=== PATIENT | female | born 1970 | race Hispanic/Latino ===

== ENCOUNTER 2024-07-11 13:08 | Emergency (ER) | payer BC ==
[~2024-07-11] VITALS: Ht 149.9 cm; Wt 62.1 kg
[2024-07-11 13:50] LABS: BASOPHILS # (AUTO) 0.02 K/uL (0.00-0.20); BASOPHILS % (AUTO) 0.2 % (0.0-5.0); EOSINOPHILS # (AUTO) 0.09 K/uL (0.00-0.70); EOSINOPHILS % (AUTO) 1.1 % (0.0-8.0); HEMATOCRIT 42.2 % (36-48); IMMATURE GRANULOCYTE ABSOLUTE 0.02 K/uL (0-1); LYMPHOCYTES # (AUTO) 2.3 K/uL (1.0-4.8); LYMPHOCYTES % (AUTO) 27.6 % (21.0-51.0); MEAN CORPUSCULAR HEMOGLOBIN 31.5 pg (27.0-33.0); MEAN CORPUSCULAR HGB CONC 34.4 g/dL (32.0-36.0); MEAN CORPUSCULAR VOLUME 91.5 fL (79-99); MONOCYTES # (AUTO) 0.6 K/uL (0.1-1.0); MONOCYTES % (AUTO) 7.2 % (3.0-13.0); NEUTROPHILS # (AUTO) 5.3 K/uL (1.8-7.7); NEUTROPHILS % (AUTO) 63.7 % (40.0-77.0); PLATELET COUNT (AUTO) 205 K/uL (130-400); RED BLOOD CELL COUNT(AUTO) 4.61 MIL/uL (4.00-5.50); RED CELL DISTRIBUTION WIDTH 12.7 % (11.0-15.5); WHITE BLOOD COUNT (AUTO) 8.3 K/uL (4.8-10.8)
[2024-07-11 13:58] LABS: CREATININE 0.8 mg/dL (0.5-1.0); POTASSIUM 3.6 mmol/L (3.5-5.1)
[2024-07-11 13:59] LABS: INR 1.01 (0.85-1.15); PROTHROMBIN TIME 10.7 SEC (9.6-11.6)
[2024-07-11 14:00] LABS: PARTIAL THROMBOPLASTIN TIME 25.9 SEC (26.3-35.5)
[2024-07-11 14:03] LABS: MAGNESIUM 1.9 mg/dL (1.80-2.40)
[2024-07-11] MEDS: LACTATED RINGERS 1000ML 1,000 ML IV ONE (14:06)
[2024-07-11 14:10] LABS: B-TYPE NATRIURETIC PEPTIDE 13 pg/mL (0-100)
--- NOTE | 2024-07-11 14:22 | HMCIMG ---
Exam Type: CHEST 1VW Clinical Information: VCP Comparison: None Findings: The lungs are clear of infiltrates. The heart is normal in size. The bony and soft tissue structures of the chest are unremarkable. Impression: Clear lungs.
[2024-07-11] MEDS ORDERED: AMOX1TAB16 PO (15:10)
[2024-07-11] MEDS ORDERED: LORA10TA7 PO (15:10)
[2024-07-11] MEDS ORDERED: FLUT16H NS (15:10)
--- NOTE | 2024-07-11 15:11 | ERN ---
General Chief Complaint: Chest Wall Pain Stated Complaint: LEFT SIDE CHEST PAIN RADIATING TO LEFT BACK Time Seen by MD: 13:10 Source: patient History of Present Illness Initial Comments THIS IS A 54-YEAR-OLD FEMALE COMING IN TO BE EVALUATED FOR A COUGH. PER PATIENT SHE HAS HAD THIS COUGH FOR THREE MONTHS. SHE STATES THAT WHEN SHE COUGHS SHE FEELS PHLEGM IN HER CHEST. AND FEVER OR CHILLS. Allergies: Coded Allergies: No Known Drug Allergies (Unverified Allergy, Unknown, 07/11/24) Past Medical History Past Medical History: Diabetes-Type II, Hypertension Past Surgical History: Cholecystectomy, ROS Dictation CONSTITUTIONAL: NO CHILLS, NO FEVER, NO WEAKNESS, NO DIAPHORESIS, NO MALAISE. HEAD/FACE: NO SIGNS OF TRAUMA. EENT: NO EYE PAIN, NO BLURRED VISION, NO TEARING, NO DOUBLE VISION, NO EAR PAIN, NO EAR DISCHARGE, NO NOSE PAIN, NO NASAL CONGESTION, NO THROAT PAIN, NO THROAT SWELLING, NO MOUTH PAIN. RESPIRATORY: COUGH, NO ORTHOPNEA, NO SOB, NO STRIDOR, NO WHEEZING. CARDIOVASCULAR: NO CHEST PAIN, NO EDEMA, NO PALPITATIONS, NO SYNCOPE. GASTROINTESTINAL/ABDOMINAL: NO ABDOMINAL PAIN, NO CONSTIPATION, NO DIARRHEA, NO NAUSEA, NO VOMITING. GENITOURINARY: NO ABNORMAL DISCHARGE, NO DYSURIA, NO FREQUENT URINATION, NO HEMATURIA. NO COMPLAINTS OF PAIN IN THE GENITALS. MUSCULOSKELETAL: NO BACK PAIN, NO GOUT, NO JOINT PAIN, NO JOINT SWELLING, NO MUSCLE PAIN, NO MUSCLE STIFFNESS, NO NECK PAIN. INTEGUMENTARY: NO CHANGE IN COLOR, NO CHANGE IN HAIR/NAILS, NO DRYNESS, NO LESION, NO LUMPS, NO RASH. NEUROLOGICAL/PSYCH: NO ANXIETY, NOT DEPRESSED, NO EMOTIONAL PROBLEM, NO HEADACHE, NO NUMBNESS, NO PRE-EXISTING DEFICIT, NO HISTORY OF SEIZURES, NO BRIGITTE MORS, NO WEAKNESS. HEMATOLOGIC/LYMPHATIC: NOT ANEMIC, NO HISTORY OF BLOOD CLOTS, NO APPARENT BLEEDING, NO BRUISING, GLANDS NOT SWOLLEN. ALL SYSTEMS NEGATIVE, EXCEPT NOTED. Physical Exam Physical Exam Dictation VITAL SIGNS: REVIEWED. GENERAL APPEARANCE: ALERT, ORIENTED X3, NO ACUTE DISTRESS, OBESE. HEAD AND FACE: NON-TRAUMATIC. EYES: PERRL, PINK CONJUNCTIVAS, EYELID NO TRAUMA, ANTERIOR CHAMBER CLEAR. EARS: PINNAS INTACT AND NO SIGNS OF TRAUMA OR ERYTHEMA. EAR CANALS CLEAR AND NO DISCHARGE. TMS ERYTHEMA. NOSE: NO DISCHARGE, NO BLEEDING. OROPHARYNX: MOUTH NORMAL, TEETH NO CARIES, TONGUE PINK. PHARYNX ERYTHEMA. TONSILS NO EXUDATES, NO ABSCESSES NOTED. MUCOUS MEMBRANE MOIST. NECK: SUPPLE, NON-TENDER, NO THYROMEGALY, NO MASSES, NO JVD, NO BRUITS. BREAST: DEFERRED. CHEST: NO TENDERNESS, NO CREPITUS, NO PARADOXICAL MOVEMENT, NO RETRACTIONS. LUNGS: CLEAR, WELL-VENTILATED, SYMMETRIC, NO RALES, NO WHEEZING, NO RHONCHI, NO STRIDOR, GOOD BREATH SOUNDS BILATERALLY. HEART: REGULAR RATE, REGULAR RHYTHM, NO MURMUR, NO GALLOPS. VASCULAR: NO PERIPHERAL EDEMA. ABDOMEN: SOFT, POSITIVE BOWEL SOUNDS, NONDISTENDED, NO GUARDING, NONTENDER, NO REBOUND, NO MASSES NO HEPATOMEGALY, NO SPLENOMEGALY, NO COMBS'S SIGN, NO HERNIA S. RECTAL: DEFERRED. GENITAL: DEFERRED. NEUROLOGICAL: NORMAL SPEECH, GROSS MOTOR FUNCTION INTACT, GROSS SENSORY FUNCTION INTACT. MUSCULOSKELETAL: NECK NONTENDER, FULL RANGE OF MOTION, BACK NONTENDER, FULL RANGE OF MOTION. EXTREMITIES: NONTENDER, FULL RANGE OF MOTION. SKIN: COLOR PINK, DRY, NO TURGOR, NO RASH, NO LACERATIONS, NO ABRASIONS, NO CONTUSIONS. LYMPHATICS: DEFERRED. Results Laboratory and Microbiology Lab and Micro Result Laboratory Tests Test 07/11/24 13:40 White Blood Count 8.3 K/uL (4.8-10.8) Red Blood Count 4.61 MIL/uL (4.00-5.50) Hemoglobin 14.5 g/dL (12.0-16.0) Hematocrit 42.2 % (36-48) Mean Corpuscular Volume 91.5 fL (79-99) Mean Corpuscular Hemoglobin 31.5 pg (27.0-33.0) Mean Corpuscular Hemoglobin Concent 34.4 g/dL (32.0-36.0) Red Cell Distribution Width 12.7 % (11.0-15.5) Platelet Count 205 K/uL (130-400) Mean Platelet Volume 10.1 fL (7.5-10.5) Immature Granulocyte % (Auto) 0.2 % (0-1) Neutrophils (%) (Auto) 63.7 % (40.0-77.0) Lymphocytes (%) (Auto) 27.6 % (21.0-51.0) Monocytes (%) (Auto) 7.2 % (3.0-13.0) Eosinophils (%) (Auto) 1.1 % (0.0-8.0) Basophils (%) (Auto) 0.2 % (0.0-5.0) Neutrophils # (Auto) 5.3 K/uL (1.8-7.7) Lymphocytes # (Auto) 2.3 K/uL (1.0-4.8) Monocytes # (Auto) 0.6 K/uL (0.1-1.0) Eosinophils # (Auto) 0.09 K/uL (0.00-0.70) Basophils # (Auto) 0.02 K/uL (0.00-0.20) Absolute Immature Granulocyte (auto 0.02 K/uL (0-1) Nucleated Red Blood Cells 0.0 % (0.0-0.19) Prothrombin Time 10.7 SEC (9.6-11.6) Prothromb Time International Ratio 1.01 (0.85-1.15) Activated Partial Thromboplast Time 25.9 SEC (26.3-35.5) L Sodium Level 137 mmol/L (136-145) Potassium Level 3.6 mmol/L (3.5-5.1) Chloride Level 101 mmol/L (101-111) Carbon Dioxide Level 28 mmol/L (21-32) Blood Urea Nitrogen 16 mg/dL (7-18) Creatinine 0.8 mg/dL (0.5-1.0) Glomerular Filtration Rate Calc 88 mL/min (>90) Random Glucose 316 mg/dL (70-105) H Total Calcium 9.1 mg/dL (8.5-10.1) Magnesium Level 1.90 mg/dL (1.80-2.40) Total Creatine Kinase 123 U/L (21-232) Troponin I High Sensitivity 7 ng/L (4-50) B-Type Natriuretic Peptide 13 pg/mL (0-100) Labs Reviewed?: Yes EKG/XRAY/US/CT/MRI EKG Comment 07/11/2024 TIME 1:26 P.M. VENTRICULAR RATE 83 SINUS RHYTHM OR [address] WAVE ELEVATION OR DEPRESSION X-RAY Comment [address] [place] [address] IMAGING REPORT Signed PATIENT: THOM HARPER MR#: [id number] : 1970 SEX: F AGE: 54 LOCATION: [facility] ORDER 18 STATUS: REG ER REPORT#: [id number] SERVICE 17 REASON: VCP ORDERING PHYSICIAN: ANURADHA YAO MD PROCEDURE: CXR1VW - CHEST 1VW Exam Type: CHEST 1VW Clinical Information: VCP Comparison: None Findings: The lungs are clear of infiltrates. The heart is normal in size. The bony and soft tissue structures of the chest are unremarkable. Impression: Clear lungs. DICTATED BY: RENETTA CABELLO MD DATE: 07/11/241419 ELECTRONICALLY SIGNED BY: RENETTA CABELLO MD DATE: 07/11/241421 MDM MDM: DIFFERENTIAL DIAGNOSIS: URI, SINUSITIS, PNEUMONIA, BRONCHITIS, RATIONALE: TESTS CONSIDERED AND ORDERED SECONDARY TO SHARED DECISION MAKING INCLUDE: PREVIOUS OUTSIDE RECORDS REVIEWED: OLD ER VISITS. PATIENT IS A 54-YEAR-OLD FEMALE COMING IN TO BE EVALUATED FOR A COUGH. PHYSICAL EXAM TYMPANIC MEMBRANE ERYTHEMA BILATERAL NASAL TURBINATE SWELLING OROPHARYNGEAL ERYTHEMA CONSISTENT WITH SINUSITIS. CHEST X-RAY NEGATIVE FOR ACUTE FINDINGS. PATIENT WILL BE DISCHARGED IN STABLE CONDITION WITH A DIAGNOSIS OF SINUSITIS I ALSO ADVISED HER APPROPRIATE FOLLOW UP WITH PCP AND OR ENT IN 1-2 DAYS. ED Course Orders Procedure Category Date Status Time Cbc With Differential LAB 07/11/24 Complete 13:18 Prothrombin Time With LAB 07/11/24 Complete INR 13:18 B-Type Natriuretic LAB 07/11/24 Complete Peptide 13:18 Chest 1vw RAD 07/11/24 Resulted 13:18 12 Lead Ekg Tracing- EKG 07/11/24 Logged Technical 13:18 Lactated Ringers PHA 07/11/24 Complete 1000ml (Lactated 13:30 Magnesium LAB 07/11/24 Complete 13:18 Creatine Kinase, Total LAB 07/11/24 Complete 13:18 Troponin I High LAB 07/11/24 Complete Sensitivity 13:18 Partial LAB 07/11/24 Complete Thromboplastin Time 13:18 Basic Metabolic Panel LAB 07/11/24 Complete 13:18 Urinalysis LAB 07/11/24 Logged W/Microscopic 14:12 Current Medications Medications (Trade) Dose Ordered Sig/Lalo Route PRN Reason Start Time Stop Time Status Last Admin Dose Admin Lactated Ringer's 1,000 ml @ 0 mls/hr ONCE ONCE IV 07/11/24 13:30 07/11/24 13:31 DC 07/11/24 14:06 Vital Signs Date Time Temp Pulse Resp B/P (MAP) Pulse Ox O2 Delivery O2 Flow Rate FiO2 07/11/24 13:17 98.4 96 16 157/86 99 Room Air* 0 21 07/11/24 13:09 98.4 96 16 157/86 99 Room Air 0 DX & DISP Disposition: Discharge Departure Impression: Primary Impression: Sinusitis Condition: Stable Scripts Loratadine (Loratadine) 10 Mg Tablet 1 TAB PO DAILY for allergy symptoms for 30 Days, #30 TAB 0 Refills Prov: ANURADHA YAO MD 07/11/24 Fluticasone Propionate (Flonase Nasal Archer) 50 Mcg/Actuation Archer 2 SPRAY NS DAILY, #16 GM 0 Refills Prov: ANURADHA YAO MD 07/11/24 Amoxicillin/Potassium Clav (Amox Tr-K Clv 875-125 mg Tab) 875 Mg-125 Mg Tablet 1 TAB PO BID for 10 Days, #20 TAB 0 Refills Prov: ANURADHA YAO MD 07/11/24 Additional Instructions: FOLLOW-UP WITH PRIMARY CARE PROVIDER IN 1 TO 2 DAYS. TAKE MEDICATIONS DIRECTED HERE IN THE EMERGENCY ROOM. OKAY TO CONTINUE HOME MEDICATIONS UNLESS OTHERWISE DISCUSSED DURING YOUR VISIT IN THE EMERGENCY ROOM TODAY. RETURN TO YOUR NEAREST EMERGENCY ROOM IF SYMPTOMS WORSEN OR IF THERE IS NO IMPROVEMENT. CALL 911 IF YOU NEED IMMEDIATE ASSISTANCE. TAKE TYLENOL [id number] NEEDED AND IF NO CONTRAINDICATIONS ARE PRESENT. INCREASE ORAL HYDRATION. A WOUND CULTURE OR URINE CULTURE WAS ORDERED HERE IN THE EMERGENCY ROOM DEPARTMENT PLEASE FOLLOW-UP WITH PRIMARY CARE PROVIDER AND ADVISE THEM TO GET REPEAT PORTS FROM OUR FACILITY. IF YOU HAD ANY NATHALIE WRAP/SPLINTS THAT WERE APPLIED HERE, PLEASE DO NOT REMOVE THEM UNTIL YOU SEE YOUR PRIMARY CARE OR SPECIALTY. REFERRALS: Referrals: SOLO SPENCE MD (PCP) JOYA RIVERS MD Time of Disposition: 15:09 ANURADHA YAO MD Jul 11, 2024 15:11
[2024-07-11 15:24] VITALS: BP 142/78; PULSE 85; RESP 16; TEMP 98.4; O2SAT 99
--- NOTE | 2024-07-11 16:32 | EKG ---
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
[2024-07-12] MEDS ORDERED: KETO10TA2 PO (21:00)
[2024-07-12] MEDS ORDERED: CYCL10TA16 PO (21:00)
== END 2024-07-11 15:57 | disposition home or self-care (01) ==
LOC: EDH 13:08
DX: J32.9 Chronic sinusitis, unspecified (principal); E11.9 Type 2 diabetes mellitus without complications; I10 Essential (primary) hypertension; Z90.49 Acquired absence of other specified parts of digestive tract
CPT/HCPCS: 99284; 71045; 82550; 83735; 84484; 80048; 83880; 85025; 85610; 85730; 36415; 93005; J7120; 99285

== ENCOUNTER 2024-07-12 16:46 | Emergency (ER) | payer BC ==
[~2024-07-12] VITALS: Ht 149.9 cm; Wt 62.3 kg
[~2024-07-12 16:46] MED LIST: AMOX1TAB16 PO; FLUT16H NS; LORA10TA7 PO
[2024-07-12] MEDS ORDERED: IOHEXOL-350 75 ML VIAL IV ONE (17:23)
[2024-07-12 17:28] LABS: BASOPHILS # (AUTO) 0.02 K/uL (0.00-0.20); BASOPHILS % (AUTO) 0.3 % (0.0-5.0); EOSINOPHILS # (AUTO) 0.07 K/uL (0.00-0.70); IMMATURE GRANULOCYTE ABSOLUTE 0.02 K/uL (0-1); LYMPHOCYTES # (AUTO) 2.4 K/uL (1.0-4.8); LYMPHOCYTES % (AUTO) 35.9 % (21.0-51.0); MEAN CORPUSCULAR HEMOGLOBIN 30.6 pg (27.0-33.0); MEAN CORPUSCULAR HGB CONC 33.8 g/dL (32.0-36.0); MEAN CORPUSCULAR VOLUME 90.5 fL (79-99); MONOCYTES # (AUTO) 0.5 K/uL (0.1-1.0); MONOCYTES % (AUTO) 7.5 % (3.0-13.0); NEUTROPHILS # (AUTO) 3.7 K/uL (1.8-7.7); PLATELET COUNT (AUTO) 206 K/uL (130-400); RED BLOOD CELL COUNT(AUTO) 4.64 MIL/uL (4.00-5.50); RED CELL DISTRIBUTION WIDTH 12.5 % (11.0-15.5); WHITE BLOOD COUNT (AUTO) 6.7 K/uL (4.8-10.8)
[2024-07-12 17:32] LABS: CREATININE 0.7 mg/dL (0.5-1.0)
[2024-07-12 17:36] LABS: INR 0.97 (0.85-1.15); PROTHROMBIN TIME 10.3 SEC (9.6-11.6)
[2024-07-12 17:37] LABS: MAGNESIUM 1.9 mg/dL (1.80-2.40); PARTIAL THROMBOPLASTIN TIME 25.8 SEC (26.3-35.5)
[2024-07-12 17:48] LABS: B-TYPE NATRIURETIC PEPTIDE 41 pg/mL (0-100)
--- NOTE | 2024-07-12 17:50 | EKG ---
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
[2024-07-12] MEDS: hydroMORPHone 0.5 MG SYG (0.5MG/0.5ML) IVP ONE (18:26)
--- NOTE | 2024-07-12 18:53 | HMCIMG ---
CT ANGIOGRAM OF THE CHEST WITHOUT AND WITH CONTRAST. CT RECONSTRUCTIONS INDICATION: Pulmonary embolism evaluation TECHNIQUE: Routine axial images using 3 mm slice thickness were acquired from the lung apices to the bases before and after the intravenous administration of 100 mL of Omnipaque 350 contrast material using the pulmonary embolism protocol. Maximum Intensity Projection imaging in the sagittal and coronal planes were also provided. CT was performed with one or more of the following dose reduction techniques: Automated exposure control, adjustment of the mA and/or kV according to patient size, or use of iterative reconstruction technique. COMPARISON: None FINDINGS: The contrast bolus is of good quality for diagnosis of pulmonary embolism. The heart size is within normal limits without pericardial effusion. The main pulmonary arteries, segmental branches, and visualized subsegmental pulmonary arteries appear normal without intraluminal filling defects. Pulmonary trunk is not enlarged. No evidence for thoracic aortic aneurysm or dissection. The origins of the great vessels and thoracic aorta appear normal. The visible portions of the trachea and airways are patent. No pleural effusion, pneumothorax, abnormal opacity or consolidation, pulmonary nodule, or mass identified. No axillary, hilar, or mediastinal lymphadenopathy detected. Limited views of the upper abdomen appear unremarkable. Visible osseous structures are intact. IMPRESSION: No evidence for pulmonary embolism. 2
[2024-07-12] MEDS: ketOROlac 15MG/ML VIAL (15MG/ML) IV ONE (20:05)
[2024-07-12] MEDS: ORPHENADRINE 60MG/2ML IVP ONE (20:05)
[2024-07-12 20:33] VITALS: BP 164/90; PULSE 68; RESP 18; TEMP 98; O2SAT 98
--- NOTE | 2024-07-12 20:55 | ERN ---
General Chief Complaint: Abnormal Labs Stated Complaint: SENT BY PHY Time Seen by MD: 16:49 Time Seen by Midlevel: 16:49 Source: patient History of Present Illness Allergies: Coded Allergies: No Known Drug Allergies (Unverified Allergy, Unknown, 07/11/24) Home Meds Active Scripts Loratadine (Loratadine) 10 Mg Tablet, 1 TAB PO DAILY for allergy symptoms for 30 Days, #30 TAB 0 Refills Prov:ANURADHA YAO MD 07/11/24 Fluticasone Propionate (Flonase Nasal Amaya) 50 Mcg/Actuation Amaya, 2 SPRAY NS DAILY, #16 GM 0 Refills Prov:ANURADHA YAO MD 07/11/24 Amoxicillin/Potassium Clav (Amox Tr-K Clv 875-125 mg Tab) 875 Mg-125 Mg Tablet, 1 TAB PO BID for 10 Days, #20 TAB 0 Refills Prov:ANURADHA YAO MD 07/11/24 Past Medical History Past Medical History: Diabetes-Type II, Hypertension Past Surgical History: Cholecystectomy, Surgical History Other: HIP Results Laboratory and Microbiology Lab and Micro Result Laboratory Tests Test 07/12/24 17:17 White Blood Count 6.7 K/uL (4.8-10.8) Red Blood Count 4.64 MIL/uL (4.00-5.50) Hemoglobin 14.2 g/dL (12.0-16.0) Hematocrit 42.0 % (36-48) Mean Corpuscular Volume 90.5 fL (79-99) Mean Corpuscular Hemoglobin 30.6 pg (27.0-33.0) Mean Corpuscular Hemoglobin Concent 33.8 g/dL (32.0-36.0) Red Cell Distribution Width 12.5 % (11.0-15.5) Platelet Count 206 K/uL (130-400) Mean Platelet Volume 9.9 fL (7.5-10.5) Immature Granulocyte % (Auto) 0.3 % (0-1) Neutrophils (%) (Auto) 55.0 % (40.0-77.0) Lymphocytes (%) (Auto) 35.9 % (21.0-51.0) Monocytes (%) (Auto) 7.5 % (3.0-13.0) Eosinophils (%) (Auto) 1.0 % (0.0-8.0) Basophils (%) (Auto) 0.3 % (0.0-5.0) Neutrophils # (Auto) 3.7 K/uL (1.8-7.7) Lymphocytes # (Auto) 2.4 K/uL (1.0-4.8) Monocytes # (Auto) 0.5 K/uL (0.1-1.0) Eosinophils # (Auto) 0.07 K/uL (0.00-0.70) Basophils # (Auto) 0.02 K/uL (0.00-0.20) Absolute Immature Granulocyte (auto 0.02 K/uL (0-1) Nucleated Red Blood Cells 0.0 % (0.0-0.19) Prothrombin Time 10.3 SEC (9.6-11.6) Prothromb Time International Ratio 0.97 (0.85-1.15) Activated Partial Thromboplast Time 25.8 SEC (26.3-35.5) L Sodium Level 138 mmol/L (136-145) Potassium Level 4.0 mmol/L (3.5-5.1) Chloride Level 102 mmol/L (101-111) Carbon Dioxide Level 29 mmol/L (21-32) Blood Urea Nitrogen 16 mg/dL (7-18) Creatinine 0.7 mg/dL (0.5-1.0) Glomerular Filtration Rate Calc 103 mL/min (>90) Random Glucose 245 mg/dL (70-105) H Total Calcium 9.5 mg/dL (8.5-10.1) Magnesium Level 1.90 mg/dL (1.80-2.40) Total Creatine Kinase 129 U/L (21-232) Troponin I High Sensitivity 5 ng/L (4-50) B-Type Natriuretic Peptide 41 pg/mL (0-100) ED Course Orders Procedure Category Date Status Time 12 Lead Ekg Tracing- EKG 07/12/24 Complete Technical 17:04 Cbc With Differential LAB 07/12/24 Complete 17:04 Basic Metabolic Panel LAB 07/12/24 Complete 17:04 B-Type Natriuretic LAB 07/12/24 Complete Peptide 17:04 Creatine Kinase, Total LAB 07/12/24 Complete 17:04 Magnesium LAB 07/12/24 Complete 17:04 Troponin I High LAB 07/12/24 Complete Sensitivity 17:04 Pt And Ptt LAB 07/12/24 Complete 17:04 Ct Chest Pe Protocol CT 07/12/24 Resulted Wwo Cont 17:04 Iohexol (Omnipaque) PHA 07/12/24 Complete 17:23 Hydromorphone 0.5mg PHA 07/12/24 Complete Syg (Dilaudid 0.5mg 18:00 O2 Order RT 07/12/24 Transmitted 17:32 Ketorolac PHA 07/12/24 Complete Tromethamine 15mg/Ml 20:00 Orphenadrine Citrate PHA 07/12/24 Complete (Norflex) 20:00 Current Medications Medications (Trade) Dose Ordered Sig/Lalo Route PRN Reason Start Time Stop Time Status Last Admin Dose Admin Hydromorphone HCl (DiLAUDid 0.5MG INJ) 0.5 mg ONCE ONCE IVP 07/12/24 18:00 07/12/24 18:01 DC 07/12/24 18:26 Iohexol (Omnipaque) 75 ml STK-MED ONCE IV 07/12/24 17:23 07/12/24 17:23 DC Ketorolac Tromethamine (toRADol) 15 mg ONCE ONCE IV 07/12/24 20:00 07/12/24 20:01 DC 07/12/24 20:05 Orphenadrine Citrate (Norflex) 60 mg ONCE ONCE IVP 07/12/24 20:00 07/12/24 20:01 DC 07/12/24 20:05 Vital Signs Date Time Temp Pulse Resp B/P (MAP) Pulse Ox O2 Delivery O2 Flow Rate FiO2 07/12/24 20:33 98.1 68 18 164/90 98 Room Air* 0 21 07/12/24 16:51 98.6 87 16 192/100 99 Room Air 0 DX & DISP Disposition: Discharge Departure Impression: Primary Impression: Costochondritis Additional Impression: Non-cardiac chest pain Condition: Stable Additional Instructions: Your blood work today is unremarkable. Your EKG is normal. Your cardiac enzymes are negative. Your CT scan of the chest shows no evidence of a blood clot in your lung, collapsed lung, or any other acute abnormality. It appears your pain is musculoskeletal in nature. It was reproducible with movement and upon palpation. You were given 0.5 mg of Dilaudid, 15 mg of Toradol, and 60 mg of Norflex IV in the emergency department. Please follow up with your primary care doctor in 2-3 days for repeat evaluation. Referrals: SOLO SPENCE MD (PCP) I have reviewed the case, and I agree with, Diagnosis and Plan I performed the substantive portion of the visit. I have reviewed and personally made and approve the management plan that is documented in the note by myself or the JOHN PAUL. I acknowledge for responsibility for the patient's management plan. KELSEY VALLE Jul 12, 2024 20:55
[2024-07-12] MEDS ORDERED: KETO10TA2 PO (21:00)
[2024-07-12] MEDS ORDERED: CYCL10TA16 PO (21:00)
== END 2024-07-12 21:11 | disposition home or self-care (01) ==
LOC: EDH 16:46
DX: M94.0 Chondrocostal junction syndrome [Tietze] (principal); R07.89 Other chest pain; E11.9 Type 2 diabetes mellitus without complications; I10 Essential (primary) hypertension; Z90.49 Acquired absence of other specified parts of digestive tract
CPT/HCPCS: 99284; 96374; 71270; 96375; 82550; 83735; 84484; 80048; 83880; 85025; 85610; 85730; 36415; 93005; J1885; J1171; Q9967; J2360